=== PATIENT | female | born 1995 | race Two or more races ===

== ENCOUNTER 2018-10-22 13:38 | Emergency (ER) | payer MEDICAID ==
[~2018-10-22] VITALS: Ht 160 cm; Wt 80.3 kg
--- NOTE | 2018-10-22 13:46 | NUR ---
SUPERVISORY IT SPECIALIST NOTE: L&D RN MEJIA CALLED, PT SYMPTOMS REVIEWED. L&D RN TO COME TO ED TO ASSESS HEART TONES.
--- NOTE | 2018-10-22 13:56 | NUR ---
First contact with pt. Pt c/o cough/body aches/DOYLE x3 days. Pt also states that x2 days pt has RUQ abd pain when coughing. Pt is currently 34w5d , . Pt states + movement. L&D RN at bedside to assess heart tones. Pt placed in gown, positioned for comfort in bed. Continuous oxygen and BP monitors applied, all safety measures observed.
--- NOTE | 2018-10-22 14:04 | NUR ---
fhts by doppler, 140, pt states fetus active, activity palpated, denies vag bleeding, leakage of fluid or vag discharge, denies lower abdominal cramping or any painful contractions although one contraction palpated, rn notified if pt has painful contractions will need to be seen in L&D
--- NOTE | 2018-10-22 14:20 | NUR ---
pet care worker applied. Pt encouraged to provide urine sample as soon as she is able to. Pt denies other needs.
[2018-10-22 14:27] LABS: BASOPHILS # (AUTO) 0.02 x10^3/uL (0-0.1); BASOPHILS % (AUTO) 0 % (0-1); EOSINOPHILS % (AUTO) 0 % (1-7); LYMPHOCYTES % (AUTO) 13 % (22-44); MD NO; MEAN CORPUSCULAR HEMOGLOBIN 24.2 pg (27.0-34.8); MEAN CORPUSCULAR HGB CONC 32.4 g/dL (32.4-35.8); MEAN CORPUSCULAR VOLUME 74.7 fL (80-100); MEAN PLATELET VOLUME 7.7 fL (7.4-10.4); MONOCYTES # (AUTO) 0.71 x10^3/uL (0.2-0.8); MONOCYTES % (AUTO) 8 % (2-9); NEUTROPHILS # (AUTO) 7.36 x10^3/uL (1.8-6.8); NEUTROPHILS % (AUTO) 79 % (42-75); PLATELET COUNT 256 x10^3/uL (130-400); RED BLOOD COUNT 4.48 x10^6/uL (3.82-5.3); RED CELL DISTRIBUTION WIDTH 13.6 % (9.6-15.2)
[2018-10-22 14:38] LABS: ALANINE AMINOTRANSFERASE 38 U/L (12-78); ALBUMIN 2.4 g/dL (3.4-5.0); ANION GAP 7 mmol/L (5-15); CALCIUM 8.2 mg/dL (8.5-10.1); CHLORIDE 107 mmol/L (98-107)
[2018-10-22 14:41] LABS: ALKALINE PHOSPHATASE 136 U/L (45-117); BILIRUBIN,TOTAL 0.4 mg/dL (0.2-1.0); CREATININE 0.42 mg/dL (0.55-1.02); TOTAL PROTEIN 6.7 g/dL (6.4-8.2)
[2018-10-22 14:48] LABS: RAPID INFLUENZA A Negative (Negative); RAPID INFLUENZA B Negative (Negative)
--- NOTE | 2018-10-22 15:04 | NUR ---
Pt ambulatory to bathroom without difficulty to attempt to collect urine sample.
[2018-10-22 15:05] VITALS: BP 107/65
--- NOTE | 2018-10-22 15:15 | NUR ---
Pt positioned for comfort in bed, denies other needs.
[2018-10-22 15:42] LABS: CULTURE INDICATED? YES; MICROSCOPIC INDICATED
--- NOTE | 2018-10-22 16:07 | NUR ---
Dr. Rodgers at bedside to discuss POC with pt.
--- NOTE | 2018-10-22 16:11 | NUR ---
Pt given water per order, denies other needs. Pt denies any painful contractions.
--- NOTE | 2018-10-22 16:20 | NUR ---
Pt tolerating PO fluids well, no N/V
== END 2018-10-22 16:23 | disposition home or self-care (01) ==
LOC: ED 15:14
DX: O23.13 Infections of bladder in pregnancy, third trimester (principal); Z3A.49 Greater than 42 weeks gestation of pregnancy; J02.9 Acute pharyngitis, unspecified
CPT/HCPCS: 36415; 71045; 80053; 81001; 85025; 87077; 87086; 87186; 87400; 93005; 99284

== ENCOUNTER 2018-11-24 12:19 | Outpatient (CLI) | payer MEDICAID | END 2018-11-24 15:29 | disposition home or self-care (01) | LOC: LDOP 12:19 | PROVIDERS: ATTEND Student in an Organized Health Care Education/Training Program | DX: O36.8190 Decreased fetal movements, unspecified trimester, not applicable or unspecified (principal); Z3A.00 Weeks of gestation of pregnancy not specified | CPT/HCPCS: 59025; 76815; 89060; 99201; G0463; Q0114 ==

== ENCOUNTER 2018-11-26 05:32 | Inpatient (IN) | payer MEDICAID ==
[~2018-11-26] VITALS: Ht 160 cm; Wt 83.0 kg
[2018-11-26 05:45] VITALS: BP 119/69
[2018-11-26] MEDS ORDERED: D5%-LACTATED RINGERS 1,000 ML IV SCH (06:53)
[2018-11-26] MEDS ORDERED: OXYTOCIN 30U/ 0.9% NaCL 500ML 500 ML IV ONE (06:53)
[2018-11-26] MEDS ORDERED: FENTANYL PF 100 MCG/2ML IV PRN (07:00)
[2018-11-26] MEDS ORDERED: TERBUTALINE 1 MG/ML, 1ML IVPush PRN (07:00)
[2018-11-26] MEDS ORDERED: FENTANYL PF 100 MCG/2ML IVPush PRN (07:00)
[2018-11-26] MEDS ORDERED: SODIUM CITRATE/CITRIC ACID 15 ML UDC PO PRN (07:00)
[2018-11-26] MEDS ORDERED: METOCLOPRAMIDE 5 MG/ML, 2ML IVPush PRN (07:00)
[2018-11-26] MEDS ORDERED: ONDANSETRON 2MG/ML, 2ML IVPush PRN (07:00)
[2018-11-26] MEDS: LACTATED RINGERS 1,000 ML IV SCH ×2 (07:07→17:07)
[2018-11-26] MEDS ORDERED: LIDOCAINE 1%, 20ML ONE (07:20)
[2018-11-26] MEDS ORDERED: MISOPROSTOL 200 MCG TABLET ONE (07:20)
[2018-11-26] MEDS ORDERED: OXYTOCIN 30U/ 0.9% NaCL 500ML 500 ML ONE (07:20)
[2018-11-26] MEDS ORDERED: FENTANYL/BUPIV./NS/PF 250 ML EPIDCONT SCH ×2 (07:25→07:40)
[2018-11-26 07:26] LABS: BASOPHILS # (AUTO) 0.03 x10^3/uL (0-0.1); BASOPHILS % (AUTO) 0 % (0-1); EOSINOPHILS # (AUTO) 0.06 x10^3/uL (0-0.4); EOSINOPHILS % (AUTO) 1 % (1-7); LYMPHOCYTES # (AUTO) 2.08 x10^3/uL (1-3.4); LYMPHOCYTES % (AUTO) 20 % (22-44); MD NO; MEAN CORPUSCULAR HEMOGLOBIN 23.3 pg (27.0-34.8); MEAN CORPUSCULAR HGB CONC 31.7 g/dL (32.4-35.8); MEAN CORPUSCULAR VOLUME 73.4 fL (80-100); MEAN PLATELET VOLUME 8.8 fL (7.4-10.4); MONOCYTES # (AUTO) 0.91 x10^3/uL (0.2-0.8); MONOCYTES % (AUTO) 9 % (2-9); NEUTROPHILS # (AUTO) 7.44 x10^3/uL (1.8-6.8); NEUTROPHILS % (AUTO) 71 % (42-75); PLATELET COUNT 268 x10^3/uL (130-400); RED BLOOD COUNT 4.56 x10^6/uL (3.82-5.3); RED CELL DISTRIBUTION WIDTH 14.9 % (9.6-15.2)
[2018-11-26] MEDS ORDERED: FENTANYL PF 500 MCG, BUPIVACAINE/PF 0.5%, 30ML 62.5 ML in SODIUM CHLORIDE 0.9% 177.5 ML EPIDCONT SCH (07:30)
[2018-11-26] MEDS ORDERED: LACTATED RINGERS 1,000 ML IV SCH (07:40)
[2018-11-26] MEDS ORDERED: BUPIVACAINE 0.25% ONE (07:56)
[2018-11-26] MEDS ORDERED: NALOXONE 0.4 MG/ML, 1ML IVPush PRN (08:00)
[2018-11-26] MEDS ORDERED: EPHEDRINE 50 MG/ML, 1ML IVPush PRN (08:00)
[2018-11-26] MEDS ORDERED: LACTATED RINGERS 1,000 ML IVBOLUS PRN (08:00)
[2018-11-26] MEDS: OXYTOCIN 30U/ 0.9% NaCL 500ML 500 ML IV SCH (17:01)
[2018-11-26] MEDS ORDERED: MAGNESIUM HYDROXIDE 8%, 30ML UDC PO PRN (17:30)
[2018-11-26] MEDS ORDERED: DOCUSATE 100 MG CAPSULE PO PRN (17:30)
[2018-11-26] MEDS ORDERED: MISOPROSTOL 200 MCG TABLET PR PRN (17:30)
[2018-11-26] MEDS ORDERED: ACETAMINOPHEN 325 MG TABLET PO PRN ×3 (17:30)
[2018-11-26] MEDS ORDERED: ONDANSETRON 2MG/ML, 2ML IV PRN (17:30)
[2018-11-26] MEDS ORDERED: MEASLES,MUMPS&RUBELLA VACC/PF 0.5 ML SQ PRN (17:30)
[2018-11-26] MEDS ORDERED: METOCLOPRAMIDE 5 MG/ML, 2ML IV PRN (17:30)
[2018-11-26] MEDS ORDERED: METHYLERGONOVINE 0.2 MG/ML IM PRN (17:30)
[2018-11-26] MEDS ORDERED: CALCIUM CARBONATE 500 MG TAB.CHEW PO PRN (17:30)
[2018-11-26] MEDS ORDERED: GLYCERIN ADULT SUPP PR PRN (17:30)
[2018-11-26] MEDS ORDERED: OXYcodone/APAP 5/325MG TABLET PO PRN ×2 (17:30)
[2018-11-26] MEDS ORDERED: DIPH,PERTUSS(ACELL),TET VAC/PF NC IM-VACC PRN (17:30)
[2018-11-26] MEDS ORDERED: CARBOPROST TROMETHAMINE 250 MCG/ML, 1ML IM PRN (17:30)
[2018-11-26] MEDS ORDERED: BISACODYL 10 MG SUPP PR PRN (17:30)
[2018-11-26] MEDS ORDERED: OXYTOCIN 10 UNITS/ML, 1ML ONE (17:36)
[2018-11-26] MEDS ORDERED: IBUPROFEN 600 MG TABLET ONE (17:52)
[2018-11-26] MEDS: IBUPROFEN 600 MG TABLET PO PRN (17:54)
[2018-11-26] MEDS ORDERED: ACETAMINOPHEN 325 MG TABLET ONE ×2 (18:09)
[2018-11-26 19:40] VITALS: BP 107/67
[2018-11-27 00:10] VITALS: BP 107/72
[2018-11-27] MEDS: OXYTOCIN 30U/ 0.9% NaCL 500ML 500 ML IV SCH ×3 (03:01→23:01)
[2018-11-27 04:15] VITALS: BP 93/61
[2018-11-27 06:33] LABS: MEAN CORPUSCULAR HEMOGLOBIN 23.8 pg (27.0-34.8); MEAN CORPUSCULAR HGB CONC 32.4 g/dL (32.4-35.8); MEAN CORPUSCULAR VOLUME 73.4 fL (80-100); MEAN PLATELET VOLUME 9.3 fL (7.4-10.4); PLATELET COUNT 259 x10^3/uL (130-400); RED BLOOD COUNT 4.56 x10^6/uL (3.82-5.3); RED CELL DISTRIBUTION WIDTH 15.4 % (9.6-15.2)
[2018-11-27 06:58] LABS: BASOPHILS # (AUTO) 0.05 x10^3/uL (0-0.1); BASOPHILS % (AUTO) 0 % (0-1); EOSINOPHILS # (AUTO) 0.01 x10^3/uL (0-0.4); EOSINOPHILS % (AUTO) 0 % (1-7); LYMPHOCYTES # (AUTO) 2.47 x10^3/uL (1-3.4); LYMPHOCYTES % (AUTO) 13 % (22-44); MD SCAN; MONOCYTES # (AUTO) 1.32 x10^3/uL (0.2-0.8); MONOCYTES % (AUTO) 7 % (2-9); NEUTROPHILS # (AUTO) 15.28 x10^3/uL (1.8-6.8); NEUTROPHILS % (AUTO) 80 % (42-75)
[2018-11-27 07:54] VITALS: BP 107/64
[2018-11-27] MEDS: PRENATAL VIT/IRON/FA 1 EACH TABLET PO SCH (09:00)
[2018-11-27 13:40] VITALS: BP 95/62
[2018-11-27] MEDS: IBUPROFEN 600 MG TABLET PO PRN ×2 (14:28→20:32)
[2018-11-27 19:44] VITALS: BP 99/65
[2018-11-28 08:30] VITALS: BP 106/74
[2018-11-28] MEDS ORDERED: IBUP-1222 PO (11:07)
[2018-11-28] MEDS: IBUPROFEN 600 MG TABLET PO PRN (12:44)
[2018-11-28] MEDS: PRENATAL VIT/IRON/FA 1 EACH TABLET PO SCH (12:46)
== END 2018-11-28 13:30 | disposition home or self-care (01) | DRG 807 ==
LOC: LDOP 05:32 → LDIP 06:53 → 2NW 19:29
PROVIDERS: ADMIT Student in an Organized Health Care Education/Training Program; ATTEND Student in an Organized Health Care Education/Training Program
PROC: 10E0XZZ Delivery of Products of Conception, External Approach (ICD-10-PCS; principal; 2018-11-26)
PROC: 10H07YZ Insertion of Other Device into Products of Conception, Via Natural or Artificial Opening (ICD-10-PCS; 2018-11-26)
PROC: 0UQKXZZ Repair Hymen, External Approach (ICD-10-PCS; 2018-11-26)
PROC: 0UQMXZZ Repair Vulva, External Approach (ICD-10-PCS; 2018-11-26)
PROC: 3E0R3BZ Introduction of Anesthetic Agent into Spinal Canal, Percutaneous Approach (ICD-10-PCS; 2018-11-26)
PROC: 00HU33Z Insertion of Infusion Device into Spinal Canal, Percutaneous Approach (ICD-10-PCS; 2018-11-26)
PROC: 10907ZC Drainage of Amniotic Fluid, Therapeutic from Products of Conception, Via Natural or Artificial Opening (ICD-10-PCS; 2018-11-26)
DX: O70.0 First degree perineal laceration during delivery (principal); Z37.0 Single live birth; Z3A.39 39 weeks gestation of pregnancy
CPT/HCPCS: 36415; 85025; 86850; 86900; G0378; J3490; J2590; J7120